=== PATIENT | female | born 1990 | race Caucasian/White ===

== ENCOUNTER 2020-05-21 12:01 | Emergency (ER) | payer OTHER ==
[~2020-05-21] VITALS: Ht 165.1 cm; Wt 61.6 kg
--- NOTE | 2020-05-21 12:48 | NUR ---
PATIENT WALKED BACK FROM TRIAGE WITH CHIEF C/O N/V X2 WEEKS, BUT HAS GOTTEN WORSE THE LAST 3 DAYS. PATIENT REPORTS BEING ABOUT 9 WEEKS , WAS REFERRED BY OB DUE TO PATIENT UNABLE TO TOLERATE NAUSEA MEDICATION. ELENI VALDEZ, ACCOMPANIED BY SIGNIFICANT OTHER, CALL LIGHT WITHIN REACH.
--- NOTE | 2020-05-21 12:54 | NUR ---
PATIENT AMBULATED TO BATHROOM WITH STEADY GAIT, URINE CUP GIVEN TO PATIENT.
--- NOTE | 2020-05-21 13:20 | NUR ---
TASK RN: URINE SAMPLE OBTAINED AND SENT TO LAB. LAB AT BEDSIDE DRAWING BLOOD
[2020-05-21] MEDS ORDERED: SODIUM CHLORIDE 0.9% 1,000ML IVBOLUS ONE (13:30)
[2020-05-21] MEDS ORDERED: ONDANSETRON 2MG/ML, 2ML IVPush ONE (13:30)
[2020-05-21] MEDS ORDERED: SODIUM CHLORIDE FLUSH 10ML SYR IVF ONE (13:30)
[2020-05-21] MEDS ORDERED: SODIUM CHLORIDE 0.9% 1,000 ML IV ONE (13:30)
[2020-05-21 13:34] LABS: BASOPHILS % (AUTO) 1 % (0-1); EOSINOPHILS % (AUTO) 1 % (1-7); LYMPHOCYTES % (AUTO) 25 % (22-44); MEAN CORPUSCULAR HEMOGLOBIN 32.7 pg (27.0-34.8); MEAN CORPUSCULAR HGB CONC 34.2 g/dL (32.4-35.8); MEAN PLATELET VOLUME 7.7 fL (7.4-10.4); MONOCYTES % (AUTO) 8 % (2-9); NEUTROPHILS % (AUTO) 65 % (42-75); PLATELET COUNT 259 x10^3/uL (130-400); RED BLOOD COUNT 3.71 x10^6/uL (3.82-5.3); RED CELL DISTRIBUTION WIDTH 12.9 % (9.6-15.2)
[2020-05-21 13:35] LABS: MD NO
[2020-05-21 13:39] LABS: MICROSCOPIC NOT IND
[2020-05-21 13:43] LABS: ALANINE AMINOTRANSFERASE 22 U/L (12-78); ALBUMIN 3.6 g/dL (3.4-5.0); ANION GAP 5 mmol/L (5-15); CALCIUM 8.6 mg/dL (8.5-10.1); CHLORIDE 109 mmol/L (98-107); CREATININE 0.55 mg/dL (0.55-1.02)
--- NOTE | 2020-05-21 13:48 | NUR ---
TASK RN: IV FLUIDS INFUSING NOTED ON MAY. DECLINING ZOFRAN AT THIS TIME
[2020-05-21 13:59] LABS: ALKALINE PHOSPHATASE 59 U/L (45-117); BILIRUBIN,TOTAL 0.2 mg/dL (0.2-1.0); TOTAL PROTEIN 7.1 g/dL (6.4-8.2)
--- NOTE | 2020-05-21 14:03 | NUR ---
PATIENT TO IMAGING.
--- NOTE | 2020-05-21 15:04 | NUR ---
PATIENT SITTING IN PATTI, COURTNEY, VSS, SIGNIFICANT OTHER AT BEDSIDE, CALL LIGHT WITHIN REACH. PATIENT UP FOR RECHECK.
[2020-05-21 15:48] VITALS: BP 96/58
--- NOTE | 2020-05-21 15:55 | NUR ---
Patient given discharge instructions and prescription and they have confirmed that they understand the instructions. Patient stable and ambulatory with steady gait from ED with significant other to private vehicle.
== END 2020-05-21 15:56 | disposition home or self-care (01) ==
LOC: ED 15:30
DX: O21.0 Mild hyperemesis gravidarum (principal); O21.8 Other vomiting complicating pregnancy; Z3A.09 9 weeks gestation of pregnancy
CPT/HCPCS: 36415; 76801; 80053; 81003; 84702; 85025; 96360; 96361; 99284; J7030